=== PATIENT | female | born 1960 | race Caucasian/White ===

== ENCOUNTER 2017-12-26 05:16 | Inpatient (IN) ==
[2017-12-26 05:55] LABS: Basophils # 0.1 10*3/uL (0.0-0.2); Basophils % 0.4 % (0.0-0.8); Eosinophils # 0.2 10*3/uL (0.0-0.87); Eosinophils % 1.6 % (0.00-10.9); Hematocrit 44.3 VOL% (35.7-47.0); Hemoglobin 14.9 GM/DL (12.0-16.0); Immature Granulocytes % 0.2 %; Immature Granulocytes Absolute 0.03 #; Lymphocytes # 1.7 10*3/uL (1.4-4.0); Mean Corpuscular HGB Conc 33.6 GM/DL (32-36); Mean Corpuscular Hemoglobin 30 PG (27-34); Mean Corpuscular Volume 88.2 FL (87-102); Mean Platelet Volume 11.4 FL (9.6-12.0); Monocytes # 1.1 10*3/uL (0.11-0.8); Neutrophils # 12.1 10*3/uL (1.4-7.4); Neutrophils % 79.8 % (38.7-73.9); Platelet Count 250 T/CUMM (130-400); Red Blood Count 5.02 MC/CUMM (3.8-5.5); Red Cell Distribution Width 12.7 % (9.3-17.3); White Blood Count 15.1 T/CUMM (4-12)
[2017-12-26 06:18] LABS: Albumin 3.5 G/DL (3.4-5.0); Bilirubin,Total 0.7 MG/DL (0.2-1.0); Calcium 8.8 MG/DL (8.5-10.1); Osmolality,Calculated 283.5 MOS/KG (273-304); Total Protein 6.7 G/DL (6.4-8.3)
[2017-12-26 08:59] LABS: Apearance,Urine CLEAR (Clear); Bilirubin,Urine Negative (Negative); Blood, Urine Negative (Negative); Glucose,Urine (UA) >=500 mg/dL (Negative); Ketones,Urine 20 mg/dL (Negative); Nitrite,Urine Negative (Negative); Protein,Urine Negative; RBC,Urine <1 /HPF (0-4); Squamous Epithelial Cell,Urine Occasional /HPF (0-10); Urine Color Straw (Yellow); Urine Urobilinogen < 2.0 EU/DL (0.2-1.0)
[2017-12-26 09:37] LABS: ABG Base Excess -4.2 MMOL/L (-2.5-2.5); ABG HCO3 20.6 MMOL/L (20-26); ABG Oxygen Saturation 98.9 % (95-100); ABG PCO2 36.9 MM HG (35-48); ABG PH 7.364 (7.35-7.45); ABG TCO2 21.7 MMOL/L (23-27); Glucose Heart Surgery 129 MG/DL (74-106); Hemoglobin Heart Surgery 13.8 G/DL (12.0-16.0); Ionized Calcium Arterial 1.03 MMOL/L (1.21-1.46); PCO2 Patient Temp Arterial 36.9 MMHG; PH Patient Temp Arterial 7.364; Patient Temperature 37 CELCIUS; Potassium Heart/CVR 3.9 MMOL/L (3.5-5.1); Sodium Heart/CVR 136 MMOL/L (135-145)
[2017-12-26 11:09] LABS: Hematocrit Heart Surgery 27.4 PERCENT (37-47); Hemoglobin Heart Surgery 8.8 G/DL (12.0-16.0); PH Patient Temp Venous 7.366; Potassium Heart/CVR 5.2 MMOL/L (3.5-5.1); VBG Base Excess -3.7 MEQ/L (0-4); VBG HCO3 21.4 MEQ/L (24-28); VBG Oxygen Saturation 99.5 %; VBG PCO2 40.8 MMHG (41-51); VBG PH 7.337
[2017-12-26 12:16] LABS: Glucose Heart Surgery > 700 MG/DL (74-106); Hematocrit Heart Surgery 23.9 PERCENT (37-47); Hemoglobin Heart Surgery 7.7 G/DL (12.0-16.0); PCO2 Patient Temp Venous 31.4 MM HG; PH Patient Temp Venous 7.346; PO2 Patient Temp Venous 28.5 MM HG; Patient Temperature 25 CELCIUS; Potassium Heart/CVR 5.7 MMOL/L (3.5-5.1); Sodium Heart/CVR 117 MMOL/L (135-145); VBG HCO3 18.5 MEQ/L (24-28); VBG Oxygen Saturation 86.1 %; VBG PH 7.187; VBG PO2 63.3 MMHG (17-40)
[2017-12-26 12:53] LABS: Hematocrit Heart Surgery 23.4 PERCENT (37-47); Hemoglobin Heart Surgery 7.5 G/DL (12.0-16.0); PCO2 Patient Temp Venous 22.4 MM HG; PO2 Patient Temp Venous 65.5 MM HG; Patient Temperature 25 CELCIUS; Potassium Heart/CVR 4.1 MMOL/L (3.5-5.1); Sodium Heart/CVR 121 MMOL/L (135-145); VBG Base Excess 0.4 MEQ/L (0-4); VBG HCO3 24.8 MEQ/L (24-28); VBG Oxygen Saturation 98.5 %; VBG PH 7.404
[2017-12-26 12:54] LABS: Glucose Heart Surgery > 700 MG/DL (74-106)
[2017-12-26 13:24] LABS: Hematocrit Heart Surgery 20.7 PERCENT (37-47); Hemoglobin Heart Surgery 6.6 G/DL (12.0-16.0); PCO2 Patient Temp Venous 20.4 MM HG; PH Patient Temp Venous 7.547; PO2 Patient Temp Venous 69.9 MM HG; Patient Temperature 25 CELCIUS; Potassium Heart/CVR 3.6 MMOL/L (3.5-5.1); Sodium Heart/CVR 121 MMOL/L (135-145); VBG Base Excess -3.5 MEQ/L (0-4); VBG HCO3 21.4 MEQ/L (24-28); VBG Oxygen Saturation 98.5 %; VBG PCO2 36.5 MMHG (41-51); VBG PH 7.374
[2017-12-26 13:25] LABS: Glucose Heart Surgery > 700 MG/DL (74-106)
[2017-12-26 14:08] LABS: PCO2 Patient Temp Venous 20.7 MM HG; PH Patient Temp Venous 7.584; Patient Temperature 25 CELCIUS; Potassium Heart/CVR 4.1 MMOL/L (3.5-5.1); Sodium Heart/CVR 117 MMOL/L (135-145); VBG Base Excess -1.1 MEQ/L (0-4); VBG HCO3 23.5 MEQ/L (24-28); VBG Oxygen Saturation 99.2 %; VBG PH 7.408
[2017-12-26 14:09] LABS: Glucose Heart Surgery > 700 MG/DL (74-106); Hemoglobin Heart Surgery 6.4 G/DL (12.0-16.0)
[2017-12-26 14:41] LABS: PH Patient Temp Venous 7.593; PO2 Patient Temp Venous 60.6 MM HG; Patient Temperature 25 CELCIUS; Potassium Heart/CVR 4.5 MMOL/L (3.5-5.1); VBG Base Excess -2.6 MEQ/L (0-4); VBG HCO3 22.2 MEQ/L (24-28); VBG Oxygen Saturation 98.4 %; VBG PCO2 33.6 MMHG (41-51); VBG PH 7.416
[2017-12-26 14:42] LABS: Glucose Heart Surgery > 700 MG/DL (74-106); Hematocrit Heart Surgery 16.7 PERCENT (37-47); Hemoglobin Heart Surgery 5.3 G/DL (12.0-16.0); Sodium Heart/CVR 118 MMOL/L (135-145)
[2017-12-26 15:19] LABS: Hematocrit Heart Surgery 24.6 PERCENT (37-47); Hemoglobin Heart Surgery 7.9 G/DL (12.0-16.0); PCO2 Patient Temp Venous 38.7 MM HG; PH Patient Temp Venous 7.341; PO2 Patient Temp Venous 38.7 MM HG; Patient Temperature 37 CELCIUS; Potassium Heart/CVR 5.2 MMOL/L (3.5-5.1); Sodium Heart/CVR 122 MMOL/L (135-145); VBG Base Excess -4.4 MEQ/L (0-4); VBG HCO3 20.4 MEQ/L (24-28); VBG Oxygen Saturation 71.5 %; VBG PCO2 38.7 MMHG (41-51); VBG PH 7.341; VBG PO2 38.7 MMHG (17-40)
[2017-12-26 15:20] LABS: Glucose Heart Surgery > 700 MG/DL (74-106)
[2017-12-26 16:44] LABS: ABG Base Excess -13.4 MMOL/L (-2.5-2.5); ABG Oxygen Saturation 98.6 % (95-100); ABG PCO2 44.7 MM HG (35-48); ABG TCO2 14.6 MMOL/L (23-27); Hematocrit Heart Surgery 26.9 PERCENT (37-47); Hemoglobin Heart Surgery 8.7 G/DL (12.0-16.0); Ionized Calcium Arterial 1.33 MMOL/L (1.21-1.46); PCO2 Patient Temp Arterial 44.7 MMHG; PH Patient Temp Arterial 7.139; Patient Temperature 37 CELCIUS; Sodium Heart/CVR 135 MMOL/L (135-145)
[2017-12-26 16:45] LABS: ABG PH 7.139 (7.35-7.45); Glucose Heart Surgery 645 MG/DL (74-106)
[2017-12-26 17:32] LABS: ABG Base Excess -8.5 MMOL/L (-2.5-2.5); ABG HCO3 17.5 MMOL/L (20-26); ABG Oxygen Saturation 97.3 % (95-100); ABG PCO2 46.4 MM HG (35-48); ABG TCO2 17.9 MMOL/L (23-27); Glucose Heart Surgery 574 MG/DL (74-106); Hematocrit Heart Surgery 27.3 PERCENT (37-47); Hemoglobin Heart Surgery 8.8 G/DL (12.0-16.0); Ionized Calcium Arterial 1.45 MMOL/L (1.21-1.46); PCO2 Patient Temp Arterial 46.4 MMHG; Patient Temperature 37 CELCIUS; Potassium Heart/CVR 2.8 MMOL/L (3.5-5.1); Sodium Heart/CVR 141 MMOL/L (135-145)
[2017-12-26 18:34] LABS: ABG Base Excess -4.9 MMOL/L (-2.5-2.5); ABG HCO3 20.3 MMOL/L (20-26); ABG Oxygen Saturation 93.4 % (95-100); ABG PCO2 57.3 MM HG (35-48); ABG PH 7.217 (7.35-7.45); ABG PO2 73.4 MM HG (80-95); Glucose Heart Surgery 476 MG/DL (74-106); Hematocrit Heart Surgery 28.1 PERCENT (37-47); Hemoglobin Heart Surgery 9.1 G/DL (12.0-16.0); Potassium Heart/CVR 2.6 MMOL/L (3.5-5.1)
[2017-12-26 18:36] LABS: Basophils % 0.1 % (0.0-0.8); Eosinophils % 0.2 % (0.00-10.9); Hematocrit 26.6 VOL% (35.7-47.0); Hemoglobin 8.9 GM/DL (12.0-16.0); Immature Granulocytes % 0.6 %; Immature Granulocytes Absolute 0.09 #; Lymphocytes # 1.1 10*3/uL (1.4-4.0); Lymphocytes % 6.9 % (21.3-54.2); Mean Corpuscular HGB Conc 33.5 GM/DL (32-36); Mean Corpuscular Hemoglobin 30 PG (27-34); Mean Corpuscular Volume 90.2 FL (87-102); Mean Platelet Volume 11.2 FL (9.6-12.0); Monocytes # 1.4 10*3/uL (0.11-0.8); Monocytes % 9.3 % (1.7-12.7); Neutrophils # 12.8 10*3/uL (1.4-7.4); Neutrophils % 82.9 % (38.7-73.9); Platelet Count 212 T/CUMM (130-400); Red Blood Count 2.95 MC/CUMM (3.8-5.5); Red Cell Distribution Width 14.5 % (9.3-17.3); White Blood Count 15.5 T/CUMM (4-12)
[2017-12-26 18:48] LABS: Blood Urea Nitrogen 8 MG/DL (7-18); Calcium 9.3 MG/DL (8.5-10.1); Glucose 467 MG/DL (74-106); INR 1.2; Osmolality,Calculated 313.1 MOS/KG (273-304); PT Patient Result 12.9 SECS; Partial Thromboplastin Time 32.7 SECS (0-40); Potassium 2.6 MMOL/L (3.5-5.1); Sodium 149 MMOL/L (136-145)
[2017-12-26 18:59] LABS: Lactic Acid 12.2 MMOL/L (0.4-2.0)
[2017-12-26 20:25] LABS: ABG Base Excess 1.6 MMOL/L (-2.5-2.5); ABG HCO3 27.1 MMOL/L (20-26); ABG Oxygen Saturation 97.8 % (95-100); ABG PCO2 47.5 MM HG (35-48); ABG PH 7.374 (7.35-7.45); ABG PO2 133.2 MM HG (80-95); ABG TCO2 28.5 MMOL/L (23-27); Glucose Heart Surgery 343 MG/DL (74-106); Hemoglobin Heart Surgery 8.2 G/DL (12.0-16.0); Potassium Heart/CVR 2.9 MMOL/L (3.5-5.1)
[2017-12-26 23:27] LABS: Hematocrit 31.1 VOL% (35.7-47.0); Hemoglobin 10.9 GM/DL (12.0-16.0)
[2017-12-26 23:45] LABS: Lactic Acid 6.6 MMOL/L (0.4-2.0)
[2017-12-27 04:13] LABS: Basophils % 0.1 % (0.0-0.8); Hematocrit 30.7 VOL% (35.7-47.0); Hemoglobin 10.7 GM/DL (12.0-16.0); Immature Granulocytes % 0.4 %; Immature Granulocytes Absolute 0.05 #; Lymphocytes # 0.7 10*3/uL (1.4-4.0); Lymphocytes % 5.4 % (21.3-54.2); Mean Corpuscular HGB Conc 34.9 GM/DL (32-36); Mean Corpuscular Hemoglobin 30 PG (27-34); Mean Corpuscular Volume 85.3 FL (87-102); Mean Platelet Volume 11.7 FL (9.6-12.0); Monocytes # 1.4 10*3/uL (0.11-0.8); Monocytes % 11.4 % (1.7-12.7); Neutrophils % 82.7 % (38.7-73.9); Platelet Count 148 T/CUMM (130-400); Red Cell Distribution Width 14.4 % (9.3-17.3)
[2017-12-27 04:41] LABS: Calcium 8.5 MG/DL (8.5-10.1); Osmolality,Calculated 295.9 MOS/KG (273-304); Potassium 3.9 MMOL/L (3.5-5.1)
[2017-12-27 04:56] LABS: Lactic Acid 2.4 MMOL/L (0.4-2.0)
[2017-12-27 08:04] LABS: ABG Base Excess 5.6 MMOL/L (-2.5-2.5); ABG HCO3 29.5 MMOL/L (20-26); ABG Oxygen Saturation 96.4 % (95-100); ABG PCO2 48.6 MM HG (35-48); ABG PH 7.416 (7.35-7.45); ABG PO2 78.1 MM HG (80-95); ABG TCO2 27.8 MMOL/L (23-27); Glucose Heart Surgery 148 MG/DL (74-106); Hematocrit Heart Surgery 35.8 PERCENT (37-47); Hemoglobin Heart Surgery 11.6 G/DL (12.0-16.0); Potassium Heart/CVR 3.4 MMOL/L (3.5-5.1)
[2017-12-27 12:00] LABS: ABG Base Excess 4.9 MMOL/L (-2.5-2.5); ABG HCO3 28.8 MMOL/L (20-26); ABG Oxygen Saturation 98.5 % (95-100); ABG PCO2 52.2 MM HG (35-48); ABG PH 7.383 (7.35-7.45); ABG TCO2 28.1 MMOL/L (23-27); Glucose Heart Surgery 141 MG/DL (74-106); Hematocrit Heart Surgery 32.4 PERCENT (37-47); Hemoglobin Heart Surgery 10.5 G/DL (12.0-16.0); Potassium Heart/CVR 4.6 MMOL/L (3.5-5.1)
[2017-12-27 17:08] LABS: ABG Base Excess 2.2 MMOL/L (-2.5-2.5); ABG HCO3 27.7 MMOL/L (20-26); ABG Oxygen Saturation 97.6 % (95-100); ABG PCO2 47.4 MM HG (35-48); ABG PH 7.385 (7.35-7.45); ABG PO2 121.9 MM HG (80-95); ABG TCO2 29.2 MMOL/L (23-27); Glucose Heart Surgery 146 MG/DL (74-106); Hemoglobin Heart Surgery 10.4 G/DL (12.0-16.0); Potassium Heart/CVR 4.7 MMOL/L (3.5-5.1)
[2017-12-28 04:46] LABS: Basophils % 0.1 % (0.0-0.8); Hematocrit 29.4 VOL% (35.7-47.0); Hemoglobin 9.8 GM/DL (12.0-16.0); Immature Granulocytes % 0.6 %; Immature Granulocytes Absolute 0.16 #; Lymphocytes # 1.3 10*3/uL (1.4-4.0); Lymphocytes % 4.9 % (21.3-54.2); Mean Corpuscular HGB Conc 33.3 GM/DL (32-36); Mean Corpuscular Hemoglobin 30 PG (27-34); Mean Corpuscular Volume 89.9 FL (87-102); Mean Platelet Volume 11.1 FL (9.6-12.0); Monocytes # 2.5 10*3/uL (0.11-0.8); Monocytes % 9.8 % (1.7-12.7); Neutrophils # 21.8 10*3/uL (1.4-7.4); Neutrophils % 84.6 % (38.7-73.9); Platelet Count 155 T/CUMM (130-400); Red Blood Count 3.27 MC/CUMM (3.8-5.5); White Blood Count 25.8 T/CUMM (4-12)
[2017-12-28 05:06] LABS: Calcium 8.1 MG/DL (8.5-10.1); Osmolality,Calculated 295.6 MOS/KG (273-304); Potassium 4.2 MMOL/L (3.5-5.1)
[2017-12-28 05:17] LABS: Band Neutrophils 7 % (0-10); Hypochromasia 1+; Lymphocytes 5 % (20-55); Platelet Estimate Adequate; Segmented Neutrophils 79 % (50-85); Total Cells Counted 100
[2017-12-28 19:01] LABS: Apearance,Urine CLEAR (Clear); Bilirubin,Urine Negative (Negative); Blood, Urine Small mg/dL (Negative); Glucose,Urine (UA) >=500 mg/dL (Negative); Ketones,Urine 20 mg/dL (Negative); Mucus,Urine Occasional /LPF (Occasional); Nitrite,Urine Negative (Negative); Protein,Urine Negative; Urine Color Straw (Yellow); Urine Specific Gravity 1.026 (1.001-1.035); Urine Urobilinogen < 2.0 EU/DL (0.2-1.0); WBC,Urine <1 /HPF (0-6)
[2017-12-29 05:36] LABS: Basophils % 0.1 % (0.0-0.8); Eosinophils % 0.1 % (0.00-10.9); Hematocrit 27.9 VOL% (35.7-47.0); Hemoglobin 9.2 GM/DL (12.0-16.0); Immature Granulocytes Absolute 0.24 #; Lymphocytes # 1.9 10*3/uL (1.4-4.0); Lymphocytes % 8.1 % (21.3-54.2); Mean Corpuscular Hemoglobin 30 PG (27-34); Mean Corpuscular Volume 90.3 FL (87-102); Mean Platelet Volume 12.5 FL (9.6-12.0); Monocytes # 1.7 10*3/uL (0.11-0.8); Monocytes % 7.2 % (1.7-12.7); NRBC # 0.04 10*3/uL; Neutrophils # 19.9 10*3/uL (1.4-7.4); Neutrophils % 83.5 % (38.7-73.9); Platelet Count 118 T/CUMM (130-400); Red Blood Count 3.09 MC/CUMM (3.8-5.5); Red Cell Distribution Width 15.3 % (9.3-17.3); White Blood Count 23.8 T/CUMM (4-12)
[2017-12-29 05:59] LABS: Calcium 8.6 MG/DL (8.5-10.1); Potassium 3.3 MMOL/L (3.5-5.1)
[2017-12-29 06:02] LABS: Band Neutrophils 7 % (0-10); Hypochromasia Slight; Lymphocytes 5 % (20-55); Microcytosis Slight; Segmented Neutrophils 83 % (50-85); Total Cells Counted 100
[2017-12-30 06:07] LABS: Basophils % 0.1 % (0.0-0.8); Eosinophils # 0.2 10*3/uL (0.0-0.87); Eosinophils % 1.1 % (0.00-10.9); Hematocrit 27.9 VOL% (35.7-47.0); Immature Granulocytes % 0.7 %; Immature Granulocytes Absolute 0.12 #; Lymphocytes # 1.3 10*3/uL (1.4-4.0); Lymphocytes % 7.9 % (21.3-54.2); Mean Corpuscular HGB Conc 32.3 GM/DL (32-36); Mean Corpuscular Hemoglobin 30 PG (27-34); Mean Corpuscular Volume 91.8 FL (87-102); Mean Platelet Volume 13.1 FL (9.6-12.0); Monocytes % 6.2 % (1.7-12.7); Neutrophils # 13.9 10*3/uL (1.4-7.4); Platelet Count 126 T/CUMM (130-400); Red Blood Count 3.04 MC/CUMM (3.8-5.5); Red Cell Distribution Width 14.6 % (9.3-17.3); White Blood Count 16.5 T/CUMM (4-12)
[2017-12-30 06:25] LABS: Calcium 7.7 MG/DL (8.5-10.1); Osmolality,Calculated 287.4 MOS/KG (273-304); Potassium 3.8 MMOL/L (3.5-5.1)
[2017-12-31 04:37] LABS: Basophils % 0.2 % (0.0-0.8); Eosinophils # 0.3 10*3/uL (0.0-0.87); Eosinophils % 2.5 % (0.00-10.9); Hematocrit 29.1 VOL% (35.7-47.0); Hemoglobin 9.6 GM/DL (12.0-16.0); Immature Granulocytes % 0.7 %; Immature Granulocytes Absolute 0.09 #; Lymphocytes # 1.5 10*3/uL (1.4-4.0); Mean Corpuscular Hemoglobin 30 PG (27-34); Mean Corpuscular Volume 90.7 FL (87-102); Mean Platelet Volume 12.3 FL (9.6-12.0); Monocytes % 8.4 % (1.7-12.7); Neutrophils # 9.2 10*3/uL (1.4-7.4); Neutrophils % 76.2 % (38.7-73.9); Platelet Count 155 T/CUMM (130-400); Red Blood Count 3.21 MC/CUMM (3.8-5.5); Red Cell Distribution Width 14.1 % (9.3-17.3); White Blood Count 12.1 T/CUMM (4-12)
[2017-12-31 05:06] LABS: Calcium 7.9 MG/DL (8.5-10.1); Osmolality,Calculated 285.3 MOS/KG (273-304); Potassium 3.3 MMOL/L (3.5-5.1)
[2017-12-31 19:36] LABS: Apearance,Urine CLEAR (Clear); Bilirubin,Urine Negative (Negative); Blood, Urine Negative (Negative); Glucose,Urine (UA) 50 mg/dL (Negative); Ketones,Urine Negative (Negative); Nitrite,Urine Negative (Negative); Protein,Urine Negative; RBC,Urine <1 /HPF (0-4); Squamous Epithelial Cell,Urine Occasional /HPF (0-10); Urine Color Straw (Yellow); Urine Specific Gravity 1.006 (1.001-1.035); Urine Urobilinogen < 2.0 EU/DL (0.2-1.0); WBC,Urine <1 /HPF (0-6)
[2018-01-01 04:33] LABS: Basophils % 0.3 % (0.0-0.8); Eosinophils # 0.5 10*3/uL (0.0-0.87); Eosinophils % 3.7 % (0.00-10.9); Hematocrit 31.1 VOL% (35.7-47.0); Hemoglobin 10.1 GM/DL (12.0-16.0); Immature Granulocytes % 1.2 %; Immature Granulocytes Absolute 0.16 #; Lymphocytes # 2.1 10*3/uL (1.4-4.0); Lymphocytes % 16.6 % (21.3-54.2); Mean Corpuscular HGB Conc 32.5 GM/DL (32-36); Mean Corpuscular Hemoglobin 30 PG (27-34); Mean Platelet Volume 12.2 FL (9.6-12.0); Monocytes # 1.2 10*3/uL (0.11-0.8); Monocytes % 9.3 % (1.7-12.7); Neutrophils # 8.8 10*3/uL (1.4-7.4); Neutrophils % 68.9 % (38.7-73.9); Platelet Count 190 T/CUMM (130-400); Red Blood Count 3.38 MC/CUMM (3.8-5.5); Red Cell Distribution Width 13.9 % (9.3-17.3); White Blood Count 12.9 T/CUMM (4-12)
[2018-01-01 04:51] LABS: Calcium 8.2 MG/DL (8.5-10.1); Osmolality,Calculated 280.4 MOS/KG (273-304); Potassium 3.9 MMOL/L (3.5-5.1)
[2018-01-02 04:46] LABS: Basophils # 0.1 10*3/uL (0.0-0.2); Basophils % 0.3 % (0.0-0.8); Eosinophils # 0.4 10*3/uL (0.0-0.87); Eosinophils % 2.5 % (0.00-10.9); Hematocrit 31.5 VOL% (35.7-47.0); Hemoglobin 10.1 GM/DL (12.0-16.0); Immature Granulocytes % 1.2 %; Immature Granulocytes Absolute 0.17 #; Lymphocytes # 2.1 10*3/uL (1.4-4.0); Lymphocytes % 14.1 % (21.3-54.2); Mean Corpuscular HGB Conc 32.1 GM/DL (32-36); Mean Corpuscular Hemoglobin 29 PG (27-34); Mean Platelet Volume 11.7 FL (9.6-12.0); Monocytes # 1.5 10*3/uL (0.11-0.8); Monocytes % 10.4 % (1.7-12.7); Neutrophils # 10.5 10*3/uL (1.4-7.4); Neutrophils % 71.5 % (38.7-73.9); Platelet Count 255 T/CUMM (130-400); Red Cell Distribution Width 13.9 % (9.3-17.3); White Blood Count 14.6 T/CUMM (4-12)
[2018-01-02 04:50] LABS: INR 1.1; PT Patient Result 11.3 SECS
[2018-01-02 08:54] LABS: INR 1.2; PT Patient Result 12.5 SECS
[2018-01-03 03:50] LABS: Basophils % 0.3 % (0.0-0.8); Eosinophils # 0.4 10*3/uL (0.0-0.87); Eosinophils % 3.2 % (0.00-10.9); Hematocrit 32.3 VOL% (35.7-47.0); Hemoglobin 10.4 GM/DL (12.0-16.0); Immature Granulocytes % 1.2 %; Immature Granulocytes Absolute 0.15 #; Lymphocytes # 2.4 10*3/uL (1.4-4.0); Lymphocytes % 19.3 % (21.3-54.2); Mean Corpuscular HGB Conc 32.2 GM/DL (32-36); Mean Corpuscular Hemoglobin 29 PG (27-34); Mean Corpuscular Volume 90.2 FL (87-102); Mean Platelet Volume 11.6 FL (9.6-12.0); Monocytes # 1.4 10*3/uL (0.11-0.8); Monocytes % 11.7 % (1.7-12.7); Neutrophils # 7.9 10*3/uL (1.4-7.4); Neutrophils % 64.3 % (38.7-73.9); Platelet Count 314 T/CUMM (130-400); Red Blood Count 3.58 MC/CUMM (3.8-5.5); Red Cell Distribution Width 14.1 % (9.3-17.3); White Blood Count 12.2 T/CUMM (4-12)
[2018-01-03 03:51] LABS: INR 1.8; PT Patient Result 18.6 SECS
[2018-01-03 05:18] LABS: Anisocytosis 1+; Band Neutrophils 2 % (0-10); Eosinophils 2 % (0-10); Lymphocytes 19 % (20-55); Macrocytosis 1+; Platelet Estimate Normal; Polychromasia 1+; Segmented Neutrophils 63 % (50-85); Total Cells Counted 100
[2018-01-03 08:05] VITALS: BP 95/54
== END 2018-01-03 12:45 | disposition home health service (06) | DRG 216 ==
LOC: N.ED 05:16 → N.CL 06:56 → N.ICU 06:56 → N.CVR 09:38 → N.ICU 12-27 13:17 → N.TELES 12-28 16:43
PROVIDERS: ADMIT Internal Medicine Cardiovascular Disease; ATTEND Internal Medicine Cardiovascular Disease